=== PATIENT | male | born 1950 | race Caucasian/White ===

== ENCOUNTER 2016-10-01 20:48 | Observation (INO) | payer OTHER ==
[~2016-10-01] VITALS: Ht 177.8 cm; Wt 99.0 kg
[~2016-10-01 20:48] MED LIST: ANTABUSE250 MG PO; ASCORBIC ACID500 M3 PO; ASPIR-LOW81 MG PO; ASPIRIN325 MG PO; ATORVASTATIN CA40 MG PO; ATORVASTATIN CA80 MG PO; AUGMENTIN875 MG PO; Atarax,Vistaril PO; BUPROPION HCL150 M2 PO; CATAPRES0.1 MG PO; CEFDINIR300 M1 PO; CIPRO HC OTIC S10 ML RIGHT EAR; CIPRO500 MG PO; CLARITIN-D 21 TABLET PO; CLINDAMYCIN HC300 MG PO; DILAUDID4 MG PO; Desyrel PO; ECOTRIN325 MG PO; ENDOCET 5-3251 EACH PO; Ecotrin PO; FIORICET 50-301 EACH PO; FIORICET,ESG1 TABLET PO; FLOMAX0.4 MG PO; FLONASE16 G1 BOTH NARES; FOLIC ACID1 MG PO; GABAPENTIN300 MG PO; HYDROCODON-ACE1 EAC4; HYDROCODON-ACE1 EAC5; HYDROXYZINE PAM50 MG PO; IBUPROFEN200 M1 PO; IBUPROFEN400 MG PO; IBUPROFEN600 MG PO; LIDOCAINE700 MG TD; LIPITOR80 MG PO; LISINOPRIL10 MG PO; LISINOPRIL40 MG; LISINOPRIL40 MG PO; LOPERAMIDE2 M1 PO; LOPRESSOR100 M1 PO; LOPRESSOR25 MG PO; LORTAB 10-3251 EACH PO; LOVENOX40 MG/0.4 SC; Lipitor PO; MEN'S MULTI-VI1 EACH PO; METOPROLOL SUCC50 MG PO; METOPROLOL TAR100 MG; METOPROLOL TAR100 MG PO; METOPROLOL TART25 MG PO; METOPROLOL TART50 MG PO; MOBIC15 MG PO; NAPROSYN500 MG PO; NAPROXEN500 MG PO; NEOMYC-POLYM-GR10 ML BOTH EYES; NICOTINE PATCH1 EAC1 TD; NORCO 5/3251 TABLET PO; OMEPRAZOLE40 M1 PO; OXYCODONE HCL10 MG PO; OXYCONTIN20 MG PO; PANTOPRAZOLE SO40 MG; PERCOCET 10/1 TABLET PO; PERCOCET 5/31 TABLET PO; POLYETHYLENE GL17 GM PO; PREDNISONE10 MG PO; PREDNISONE20 M1 PO; PREDNISONE20 MG PO; PREDNISONE50 MG PO; PRINIVIL10 MG PO; PRINIVIL20 MG PO; PROAIR HFA8.5 GM IH; Percocet 5/325,Endoc PO; Protonix PO; ROBITUSSIN AC,T10 ML PO; SENNA-TIME S T1 EACH PO; SEROQUEL50 MG PO; SSD25GM TP; TEARS NATURALE-15 ML BOTH EYES; TESSALON PERLE100 MG PO; THERAGRAN1 TABLET PO; TOPROL XL50 MG PO; TRAMADOL HCL50 MG; TRAMADOL HCL50 MG PO; Toprol XL PO; ULTRAM ER100 MG PO; ULTRAM50 MG PO; VICODIN 5-3001 EACH PO; VICODIN HP 10-1 EACH PO; VICODIN HP 11 TABLET PO; VITAMIN C POWDER PO; VITAMIN C1000 MG PO; Wellbutrin SR PO; ZESTRIL,PRINIVI10 M1 PO; ZESTRIL20 MG PO; ZOFRAN8 MG PO; ZYRTEC10 M3 PO
[2016-10-01 21:50] LABS: HEMATOCRIT 40.2 % (38.0-50.0); MCH 30.6 PG (29.0-34.0); MCHC 34.3 G/DL (30.0-36.0); MCV 89.1 FL (86-99); PLATELET COUNT 262 K/uL (156-360); RBC DIS.WIDTH-CV 13.5 % (11.8-14.6); RED BLOOD COUNT 4.51 M/uL (4.00-5.50); WHITE BLOOD COUNT 13.6 K/uL (4.1-10.2)
[2016-10-01 22:00] LABS: CHLORIDE 100 mEq/L (99-109); POTASSIUM 4.9 mEq/L (3.7-5.4); SODIUM 137 mEq/L (136-147)
[2016-10-01 22:02] LABS: GLUCOSE 148 mg/dL (70-99)
[2016-10-01 22:04] LABS: ANION GAP 14 MEQ/L (2-14); TOTAL BILIRUBIN 0.4 mg/dL (0.0-1.0)
[2016-10-01 22:06] LABS: ALKALINE PHOSPHATASE 114 IU/L (3-129); GFR ESTIMATE (CALCULATED) 22 mL/min/
[2016-10-01 22:07] LABS: UREA NITROGEN (BUN) 29 mg/dL (9-23)
[2016-10-01 23:03] LABS: LIPASE 21 U/L (1.0-51.0)
[2016-10-02 00:08] LABS: EOSINOPHIL (%) 0 % (0-5); IMMATURE GRANULOCYTE COUNT 0.1 K/uL; LYMPHOCYTE COUNT 0.6 K/uL (1.0-2.8); MONOCYTE (%) 4.1 % (3-12); MONOCYTE COUNT 0.5 K/uL (0-0.8); NEUTROPHIL (%) 90.5 % (45-76)
[2016-10-02] MEDS ORDERED: LOPRESSOR50 MG PO (01:59)
[2016-10-02] MEDS ORDERED: LO-DOSE ASPIRIN81 M1 PO (02:00)
[2016-10-02] MEDS ORDERED: FLUOXETINE HCL20 MG PO (02:01)
[2016-10-02] MEDS ORDERED: SPIRONOLACTONE25 MG PO (02:01)
[2016-10-02] MEDS ORDERED: HYDROCHLOROTHIA25 MG PO (02:01)
[2016-10-02 02:49] VITALS: BP 98/58
[2016-10-02 07:20] VITALS: BP 89/52
[2016-10-02 08:04] LABS: INTACT PARATHYROID HORMONE 200 pg/mL (10-69)
[2016-10-02 12:27] VITALS: BP 88/50
[2016-10-02 12:28] LABS: ANION GAP 8 MEQ/L (2-14); CHLORIDE 104 MEQ/L (99-109); POTASSIUM 4.9 MEQ/L (3.7-5.4); SAMPLE HEMOLYSIS CHECK 2; SAMPLE ICTERIC CHECK 0; SAMPLE LIPEMIA CHECK 0; SODIUM 138 MEQ/L (136-147)
[2016-10-02 12:33] LABS: UREA NITROGEN (BUN) 39 mg/dL (9-23)
[2016-10-02 12:38] LABS: GFR ESTIMATE (CALCULATED) 32 mL/min/; GLUCOSE 102 mg/dL (70-99)
[2016-10-02 16:24] VITALS: BP 93/52
[2016-10-02 18:05] LABS: ADD MIUA? NO; BILIRUBIN NEGATIVE; BLOOD NEGATIVE; COLOR YELLOW ((YELLOW)); GLUCOSE (STRIP) NEGATIVE; KETONES NEGATIVE; LEUKOCYTES NEGATIVE; NITRITE NEGATIVE; PROTEIN (STRIP) NEGATIVE; SPECIFIC GRAVITY 1.014 (1.000-1.030); UCUL ADDED? NO; UROBILINOGEN 0.2 MG/DL (0.2-1.0)
[2016-10-03] VITALS: BP 96/58
[2016-10-03 03:30] VITALS: BP 98/60
[2016-10-03 06:50] VITALS: BP 111/71
[2016-10-03 07:40] LABS: HEMATOCRIT 35.2 % (38.0-50.0); MCHC 33.5 G/DL (30.0-36.0); MCV 92.4 FL (86-99); MEAN PLAT.VOLUME 10.8 uM^3 (9.0-12.4); PLATELET COUNT 199 K/uL (156-360); RBC DIS.WIDTH-CV 13.8 % (11.8-14.6); RBC DIS.WIDTH-SD 46.8 % (39-53); RED BLOOD COUNT 3.81 M/uL (4.00-5.50); WHITE BLOOD COUNT 7.2 K/uL (4.1-10.2)
[2016-10-03 08:01] LABS: ANION GAP 6 MEQ/L (2-14); CHLORIDE 107 MEQ/L (99-109); GFR ESTIMATE (CALCULATED) > 59 mL/min/; GLUCOSE 82 mg/dL (70-99); POTASSIUM 4.7 MEQ/L (3.7-5.4); SAMPLE HEMOLYSIS CHECK 0; SAMPLE ICTERIC CHECK 0; SAMPLE LIPEMIA CHECK 0; SODIUM 140 MEQ/L (136-147); UREA NITROGEN (BUN) 25 mg/dL (9-23)
[2016-10-03] MEDS ORDERED: LOPRESSOR25 MG PO (11:19)
[2016-10-03] MEDS ORDERED: PHOSPHA250 MG PO (11:25)
== END 2016-10-03 14:12 | disposition home or self-care (01) ==
LOC: EME 20:48 → 5EAST 10-02 00:54 → EDOF 10-02 00:54 → 5EAST 10-02 00:54 → ENRESERV 10-02 00:56 → 5EAST 10-02 02:16 → ENPENDDIS 10-03 → 5EAST 10-03 12:37
PROVIDERS: Hospitalist; Internal Medicine Nephrology
DX: K52.9 Noninfective gastroenteritis and colitis, unspecified (principal); N17.9 Acute kidney failure, unspecified; R10.31 Right lower quadrant pain; I10 Essential (primary) hypertension; I25.10 Atherosclerotic heart disease of native coronary artery without angina pectoris; Z95.1 Presence of aortocoronary bypass graft; F17.210 Nicotine dependence, cigarettes, uncomplicated; Z79.82 Long term (current) use of aspirin; E78.5 Hyperlipidemia, unspecified
CPT/HCPCS: 74176; 80048; 80053; 80069; 81003; 83605; 83690; 83930; 83935; 83970; 84300; 85025; 85027; 87493; 87506; 94799; 99281; 99285; G0378; J1644; J2405; J7030

== ENCOUNTER 2016-11-30 10:12 | Observation (INO) | payer OTHER ==
[~2016-11-30] VITALS: Ht 177.8 cm; Wt 103.0 kg
[~2016-11-30 10:12] MED LIST changes: +FLUOXETINE HCL20 MG PO; +HYDROCHLOROTHIA25 MG PO; +LO-DOSE ASPIRIN81 M1 PO; +LOPRESSOR50 MG PO; +PHOSPHA250 MG PO; +SPIRONOLACTONE25 MG PO
[2016-11-30 11:07] LABS: HEMATOCRIT 39.2 % (38.0-50.0); MCH 30.5 PG (29.0-34.0); MCHC 32.9 G/DL (30.0-36.0); MCV 92.7 FL (86-99); MEAN PLAT.VOLUME 9.8 uM^3 (9.0-12.4); PLATELET COUNT 200 K/uL (156-360); RBC DIS.WIDTH-CV 13.1 % (11.8-14.6); RBC DIS.WIDTH-SD 44.5 % (39-53); RED BLOOD COUNT 4.23 M/uL (4.00-5.50); WHITE BLOOD COUNT 14.6 K/uL (4.1-10.2)
[2016-11-30 11:15] LABS: CHLORIDE 103 mEq/L (99-109); POTASSIUM 4.1 mEq/L (3.7-5.4); SODIUM 135 mEq/L (136-147)
[2016-11-30 11:17] LABS: GLUCOSE 116 mg/dL (70-99)
[2016-11-30 11:18] LABS: ANION GAP 7 MEQ/L (2-14)
[2016-11-30 11:20] LABS: SERUM ETHYL ALCOHOL < 10 mg/dL
[2016-11-30 11:21] LABS: GFR ESTIMATE (CALCULATED) > 59 mL/min/
[2016-11-30 11:22] LABS: UREA NITROGEN (BUN) 10 mg/dL (9-23)
[2016-11-30 15:24] LABS: APPEARANCE CLEAR/COLORLESS; CSF EOSINOPHILS ND % (0-25); MONO RAW COUNT ND; MONONUCLEAR WBC'S ND % (50-90); POLY RAW COUNT ND; POLYNUCLEAR WBC'S ND % (0-3); RED CELL AREA COUNTED 18; RED CELL COUNT 1 /MM^3 (0-1); RED CELL DILUTION 1; WBC AREA COUNTED 18; WBC DILUTION 1; WHITE CELL COUNT 0 /MM^3 (0-5); WHITE CELL RAW COUNT 0
[2016-11-30 15:51] LABS: ADD MIUA? NO; BILIRUBIN NEGATIVE; BLOOD NEGATIVE; COLOR YELLOW ((YELLOW)); GLUCOSE (STRIP) NEGATIVE; KETONES NEGATIVE; LEUKOCYTES NEGATIVE; NITRITE NEGATIVE; PROTEIN (STRIP) 30; SPECIFIC GRAVITY 1.027 (1.000-1.030); UCUL ADDED? NO; UROBILINOGEN 0.2 MG/DL (0.2-1.0)
[2016-11-30] MEDS ORDERED: LOPRESSOR50 MG PO (15:55)
[2016-11-30 15:57] LABS: ADD MEDTOX COMMENT Y; AMPHETAMINE NEGATIVE (500 ng/mL); BARBITURATES NEGATIVE (200 ng/mL); BENZODIAZEPINES NEGATIVE (150 ng/mL); COCAINE NEGATIVE (150 ng/mL); INTERNAL CONTROLS VALID? YES; METHADONE NEGATIVE (200 ng/mL); METHAMPHETAMINE NEGATIVE (500 ng/mL); OPIATES (MORPHINE) PRESUMPTIVE POSITIVE (100 ng/mL); OXYCODONE NEGATIVE (100 ng/mL); PHENCYCLIDINE NEGATIVE (25 ng/mL); PROPOXYPHENE NEGATIVE (300 ng/mL); THC CANNABINOIDS NEGATIVE (50 ng/mL); TRICYCLIC ANTIDEPRESSANTS NEGATIVE (300 ng/mL)
[2016-11-30 16:50] LABS: BICARBONATE 30.4 mEq/L (22-26); CARBOXY HGB 3.5 % (0-5); COMMENTS - BLOOD GASES A+C+; DEVICE NC; METHEMOGLOBIN 1.2 % (0-1.5); O2 FLOW 2 L/MIN; PCO2 59 mm Hg (35-45); PO2 79 mm Hg (80-100); SITE RR; pH 7.32 (7.35-7.45)
[2016-11-30 16:51] LABS: TOTAL RESP RATE 22 resp/min
[2016-11-30 17:48] VITALS: BP 117/77
[2016-11-30 17:50] LABS: TOTAL BILIRUBIN 0.5 mg/dL (0.0-1.0)
[2016-11-30 17:51] LABS: ALKALINE PHOSPHATASE 85 IU/L (3-129)
[2016-11-30 17:54] LABS: DIRECT BILIRUBIN 0.2 mg/dL (0.0-0.3)
[2016-11-30 20:00] VITALS: BP 109/65; BP 150/70
[2016-11-30 23:47] VITALS: BP 123/74
[2016-12-01 04:30] VITALS: BP 133/70
[2016-12-01 06:16] LABS: ALKALINE PHOSPHATASE 82 IU/L (3-129); ANION GAP 5 MEQ/L (2-14); CHLORIDE 103 MEQ/L (99-109); GFR ESTIMATE (CALCULATED) > 59 mL/min/; GLUCOSE 115 mg/dL (70-99); POTASSIUM 4.4 MEQ/L (3.7-5.4); SAMPLE HEMOLYSIS CHECK 0; SAMPLE ICTERIC CHECK 0; SAMPLE LIPEMIA CHECK 0; SODIUM 136 MEQ/L (136-147); TOTAL BILIRUBIN 0.4 MG/DL (0.0-1.0); UREA NITROGEN (BUN) 17 mg/dL (9-23)
[2016-12-01 08:31] VITALS: BP 140/76
[2016-12-01 09:07] LABS: EOSINOPHIL (%) 0.4 % (0-5); EOSINOPHIL COUNT 0.1 K/uL (0-0.3); HEMATOCRIT 37.6 % (38.0-50.0); IMMATURE GRANULOCYTE (%) 0.5 % (0.0-0.7); IMMATURE GRANULOCYTE COUNT 0.1 K/uL; INSTRUMENT ABS NEUTROPHIL CT 10.4 K/uL; LYMPHOCYTE COUNT 1.4 K/uL (1.0-2.8); MCH 31.6 PG (29.0-34.0); MCV 95.9 FL (86-99); MONOCYTE (%) 10.7 % (3-12); MONOCYTE COUNT 1.4 K/uL (0-0.8); NEUTROPHIL (%) 77.9 % (45-76); NEUTROPHIL COUNT 10.4 K/uL (1.8-6.4); PLATELET COUNT 199 K/uL (156-360); RBC DIS.WIDTH-CV 13.1 % (11.8-14.6); RBC DIS.WIDTH-SD 46.4 % (39-53); RED BLOOD COUNT 3.92 M/uL (4.00-5.50); WHITE BLOOD COUNT 13.3 K/uL (4.1-10.2)
[2016-12-01 10:09] LABS: INTER. NORMALIZED RATIO 1.2; PROTHROMBIN TIME 13.2 SEC (10.2-12.9)
[2016-12-01 12:00] VITALS: BP 169/98
[2016-12-01 16:00] VITALS: BP 145/77
[2016-12-01 20:00] VITALS: BP 139/85
[2016-12-02] VITALS: BP 138/84
[2016-12-02 03:37] VITALS: BP 139/82
[2016-12-02 05:49] LABS: EOSINOPHIL (%) 0 % (0-5); HEMATOCRIT 39.6 % (38.0-50.0); IMMATURE GRANULOCYTE (%) 0.8 % (0.0-0.7); IMMATURE GRANULOCYTE COUNT 0.1 K/uL; INSTRUMENT ABS NEUTROPHIL CT 11.6 K/uL; LYMPHOCYTE COUNT 0.7 K/uL (1.0-2.8); MCHC 32.6 G/DL (30.0-36.0); MCV 92.1 FL (86-99); MONOCYTE (%) 3.9 % (3-12); MONOCYTE COUNT 0.5 K/uL (0-0.8); NEUTROPHIL (%) 89.9 % (45-76); NEUTROPHIL COUNT 11.6 K/uL (1.8-6.4); PLATELET COUNT 229 K/uL (156-360); RBC DIS.WIDTH-CV 12.8 % (11.8-14.6); RBC DIS.WIDTH-SD 43.2 % (39-53); WHITE BLOOD COUNT 12.9 K/uL (4.1-10.2)
[2016-12-02 06:12] LABS: ALKALINE PHOSPHATASE 86 IU/L (3-129); ANION GAP 8 MEQ/L (2-14); CHLORIDE 107 MEQ/L (99-109); GFR ESTIMATE (CALCULATED) > 59 mL/min/; GLUCOSE 148 mg/dL (70-99); POTASSIUM 4.1 MEQ/L (3.7-5.4); SAMPLE HEMOLYSIS CHECK 0; SAMPLE ICTERIC CHECK 0; SAMPLE LIPEMIA CHECK 0; SODIUM 141 MEQ/L (136-147); UREA NITROGEN (BUN) 19 mg/dL (9-23)
[2016-12-02 06:13] LABS: TOTAL BILIRUBIN 0.3 MG/DL (0.0-1.0)
[2016-12-02 07:48] VITALS: BP 192/93
[2016-12-02 11:41] VITALS: BP 179/96
[2016-12-02] MEDS ORDERED: CONSTULOSE10 GM/15 M PO (13:22)
[2016-12-02] MEDS ORDERED: AZITHROMYCIN250 MG PO (13:23)
[2016-12-02] MEDS ORDERED: PREDNISONE10 MG PO (13:24)
[2016-12-02] MEDS ORDERED: PROVENTIL HFA6.7 GM IH (13:33)
== END 2016-12-02 14:16 | disposition home or self-care (01) ==
LOC: EME → EDBD 10:12 → EDOF 16:14 → 5WEST 16:14 → ENRESERV 16:16 → 5WEST 17:20 → ENPENDDIS 12-02 → 5WEST 12-02 14:16
PROVIDERS: Emergency Medicine; Hospitalist; Internal Medicine
PROC: 009U3ZX Drainage of Spinal Canal, Percutaneous Approach, Diagnostic (ICD-10-PCS; principal; 2016-11-30)
DX: E72.20 Disorder of urea cycle metabolism, unspecified (principal); R40.0 Somnolence; J44.1 Chronic obstructive pulmonary disease with (acute) exacerbation; R09.02 Hypoxemia; R06.89 Other abnormalities of breathing; F11.20 Opioid dependence, uncomplicated; R51 Headache; I10 Essential (primary) hypertension; I25.10 Atherosclerotic heart disease of native coronary artery without angina pectoris; Z95.1 Presence of aortocoronary bypass graft; R27.0 Ataxia, unspecified; Z79.82 Long term (current) use of aspirin; F17.200 Nicotine dependence, unspecified, uncomplicated; F10.20 Alcohol dependence, uncomplicated; D72.829 Elevated white blood cell count, unspecified; E78.5 Hyperlipidemia, unspecified; I25.2 Old myocardial infarction; Z85.828 Personal history of other malignant neoplasm of skin; Z87.442 Personal history of urinary calculi
CPT/HCPCS: 36600; 70450; 70551; 71020; 74177; 80048; 80053; 80076; 81003; 82140; 82803; 82945; 84157; 84999; 85025; 85027; 85610; 87070; 87205; 89051; 93005; 94640; 94640 76; 94760; 94799; 99202; 99281; 99285; G0378; G0480; G8978 GP CH; G8979 GP CH; G8980 GP CH; J0696; J1650; J1885; J2060; J2270; J2405; J2920; J7030; J7050; J7512; S0028

== ENCOUNTER 2017-02-10 03:05 | Emergency (ER) | payer OTHER ==
[~2017-02-10] VITALS: Ht 177.8 cm; Wt 101.0 kg
[~2017-02-10 03:05] MED LIST changes: +AZITHROMYCIN250 MG PO; +CONSTULOSE10 GM/15 M PO; +PROVENTIL HFA6.7 GM IH
[2017-02-10] MEDS ORDERED: VALIUM5 MG PO (04:36)
[2017-02-10] MEDS ORDERED: NORCO 5/3251 TABLET PO (04:36)
[2017-02-10] MEDS ORDERED: NAPROXEN500 MG PO (04:36)
[2017-02-10 06:03] VITALS: BP 118/84
== END 2017-02-10 06:04 | disposition home or self-care (01) ==
LOC: EME 03:05
DX: M62.838 Other muscle spasm (principal); I10 Essential (primary) hypertension; Z79.82 Long term (current) use of aspirin